=== PATIENT | female | born 1955 ===

== ENCOUNTER 2018-10-12 21:03 | Emergency (ER) | payer OTHER ==
[~2018-10-12] VITALS: Ht 160 cm; Wt 54.5 kg
[2018-10-12 21:16] VITALS: Ht 160 cm; Wt 54.5 kg
[2018-10-12] MEDS ORDERED: TALWIN NX1 TAB PO (21:18)
[2018-10-12] MEDS ORDERED: FOLATE0.4 MG PO (21:19)
[2018-10-12] MEDS ORDERED: METHOTREXATE2.5 MG PO (21:19)
[2018-10-12] MEDS ORDERED: DOXYCYCLINE HY100 M2 PO (21:19)
[2018-10-12] MEDS ORDERED: BUTALB-APAP-CA1 EACH PO (21:20)
[2018-10-12] MEDS ORDERED: ZOFRAN8 MG PO (21:20)
[2018-10-12 22:34] LABS: BASOPHILS 0.4 % (0-2); EOSINOPHILS 0.4 % (0-7); HEMATOCRIT 34.8 % (36.0-48.0); HEMOGLOBIN 11.6 g/dL (12-16); LYMPHOCYTES 33.1 % (15-50); MCH 31.9 pg (26.0-34.0); MCHC 33.3 g/dL (31.0-37.0); MCV 95.6 fL (80.0-100.0); MONOCYTES 7.1 % (2-11); PLATELET COUNT 170 10x3/uL (130-400); RBC 3.64 10x6/uL (4.00-5.40); RDW 13.3 % (11.5-14.5); WBC 2.4 10x3/uL (4.8-10.8)
[2018-10-12 22:47] LABS: APPEARANCE CLEAR (CLEAR); BILIRUBIN NEGATIVE (NEGATIVE); COLOR YELLOW (YELLOW); GLUCOSE NEGATIVE (NEGATIVE); KETONE NEGATIVE (NEGATIVE); NITRITE NEGATIVE (NEGATIVE); PROTEIN NEGATIVE (NEGATIVE); UROBILINOGEN NORMAL (NORMAL)
[2018-10-12 22:58] LABS: ALBUMIN 3.1 g/dL (3.4-5.0); ANION GAP 13.1 mmol/L (8-16); BILIRUBIN - TOTAL 0.41 mg/dL (0.2-1.3); C-REACTIVE PROTEIN 7.2 mg/dL (0.0-0.9); CALCIUM 7.9 mg/dL (8.5-10.1); CARBON DIOXIDE 24.6 mmol/L (21.0-32.0); CREATININE - SERUM 1.3 mg/dL (0.6-1.3); POTASSIUM - SERUM 3.7 mmol/L (3.5-5.1); PROTEIN - SERUM 6.6 g/dL (6.4-8.2)
[2018-10-12 23:12] LABS: EOSINOPHILS 1 % (0-7); LYMPHOCYTES 31 % (15-50); MONOCYTES 7 % (2-11); NEUTROPHILS 61 % (40-80); PLATELET ESTIMATE NORMAL; PLATELET MORPHOLOGY GIANT PLTS PRESENT
[2018-10-13] MEDS ORDERED: TAMIFLU75 MG PO (00:14)
[2018-10-13 00:17] VITALS: BP 105/56
== END 2018-10-13 00:17 | disposition home or self-care (01) ==
LOC: D.ER 21:03
PROVIDERS: Family Medicine
DX: R51 Headache (principal); M54.5 Low back pain; D18.1 Lymphangioma, any site; J09.X2 Influenza due to identified novel influenza A virus with other respiratory manifestations